=== PATIENT | female | born 1955 | race Caucasian/White ===

== ENCOUNTER → 2017-07-12 | Outpatient (CLI) | payer OTHER | LOC: M.RAD 14:37 | DX: Z12.31 Encounter for screening mammogram for malignant neoplasm of breast (principal); I10 Essential (primary) hypertension ==

== ENCOUNTER → 2019-12-25 | Outpatient (CLI) | payer MEDICARE, OTHER | END | disposition home or self-care (01) | LOC: M.RAD 12:48 | PROVIDERS: ATTEND Orthopaedic Surgery | DX: M25.551 Pain in right hip (principal) ==

== ENCOUNTER → 2020-02-03 | Outpatient (CLI) | payer MEDICARE, OTHER | LOC: M.MRI 16:24 | PROVIDERS: ATTEND Orthopaedic Surgery | DX: M51.15 Intervertebral disc disorders with radiculopathy, thoracolumbar region (principal); M47.817 Spondylosis without myelopathy or radiculopathy, lumbosacral region; M48.061 Spinal stenosis, lumbar region without neurogenic claudication ==

== ENCOUNTER → 2020-02-25 | Outpatient (CLI) | payer MEDICARE, OTHER ==
[~2020-02-25] MED LIST: APAP W/CODEINE1 TA2 PO; ASA81BEC PO; CARVEDILOL12.5 MG PO; COZAAR100 MG PO; CYMBALTA60 MG PO; TRIAMTERENE/HCT1 CA1 PO
[2020-02-25 10:56] LABS: ABSOLUTE BASOPHILS 0.1 thou/uL (0.0-0.2); ABSOLUTE EOSINOPHILS 0.1 thou/uL (0.0-0.7); ABSOLUTE LYMPHOCYTES 2.6 thou/uL (0.8-5.3); ABSOLUTE MONOCYTES 0.7 thou/uL (0.0-1.2); ABSOLUTE NEUTROPHILS 6.8 thou/uL (1.6-8.1); BASOPHILS 0.7 %; EOSINOPHILS 1.2 %; HEMATOCRIT 40.1 % (37.0-47.0); HEMOGLOBIN 13.6 gm/dL (12.0-15.0); LYMPHOCYTES 25.7 %; MCH 29.1 pg (26.0-34.0); MCHC 33.9 g/dL (28.0-37.0); MCV 85.8 fL (80.0-100.0); MONOCYTES 6.3 %; MPV 6.3 fl. (7.2-11.1); NUCLEATED RBCS 0 /100WBC; PLATELET COUNT* 319 thou/uL (150-400); POLYS 66.1 %; RBC 4.67 mil/uL (4.20-5.00); RDW-CV 13.5 % (10.5-14.5); WBC 10.3 thou/uL (4.0-11.0)
[2020-02-25 11:03] LABS: APTT 26.8 Seconds (25.0-31.3); PROTIME 10.8 Seconds (9.20-11.50)
[2020-02-25 11:04] LABS: ALBUMIN 3.6 g/dL (3.4-5.0); CALCIUM 9.1 mg/dL (8.5-10.1); CREATININE 0.8 mg/dL (0.6-1.3); POTASSIUM 3.9 mmol/L (3.5-5.1); TOTAL BILIRUBIN 0.5 mg/dL (<0.1-1.0); TOTAL PROTEIN 7.4 g/dL (6.4-8.2)
[2020-02-25 12:26] LABS: ESR (SEDRATE) 26 mm/hr (0-30)
--- NOTE | 2020-02-25 15:43 | EKG ---
[place] [address] ELECTROCARDIOGRAM REPORT Name: MADELYN MONTANEZ Room: [facility]#: [id number] Admission: 02/25/20 Attend Phys: Padilla Chanel DO Discharge: Date of : 55 Date of Service: 02/25/20 1109 Report #: [id number] THIS REPORT FOR: //name// [facility] Test Date: 2020-02-25 Test Time: 11:09:40 Pat Name: MADELYN MONTANEZ Department: Room: Gender: F Sql Report Analyst: : 1955 Requested By: Padilla Chanel Order Number: [id number] Reading MD: Shailesh Rivas Measurements Intervals [place] Rate: 73 P: 31 DE: 154 QRS: 3 QRSD: 86 T: 85 QT: 413 QTc: 456 Interpretive Statements Sinus rhythm Borderline T wave abnormalities Compared to ECG 05/06/2009 06:51:19 T-wave abnormality now present Electronically Signed On 02-25-2020 15:43:18 ADULT [employer]IST[employer]ES DIRECTOR by Shailesh Rivas [email or web address] <ELECTRONICALLY SIGNED> By: Paulino Rivas MD, [facility] 02/25/20 1543 1109 1109 Paulino Rivas MD, [facility] /EPI
[2020-02-26 02:06] LABS: GLYCOHEMOGLOBIN (HGB A1C) 5.8 % (4.8-5.6)
== END ==
LOC: M.LAB 10:33
PROVIDERS: ATTEND Orthopaedic Surgery
DX: Z01.812 Encounter for preprocedural laboratory examination (principal); Z20.828 Contact with and (suspected) exposure to other viral communicable diseases; M16.11 Unilateral primary osteoarthritis, right hip; I49.9 Cardiac arrhythmia, unspecified

== ENCOUNTER 2020-03-02 10:11 | Observation (INO) | payer MEDICARE, OTHER ==
[~2020-03-02] VITALS: Ht 154.9 cm; Wt 99.8 kg
[2020-03-02 11:50] VITALS: BP 144/74
--- NOTE | 2020-03-02 18:51 | NUR ---
PT ORIENTED TO ROOM. FALL RISK PRECAUTIONS IN PLACE. WILL CONTINUE TO MONITOR.
[2020-03-02 20:53] VITALS: BP 140/55
[2020-03-03 00:06] VITALS: BP 153/59
--- NOTE | 2020-03-03 05:02 | NUR ---
PATIENT SLEPT VERY WELL DURING NIGHT. SHE WOKE AT 0130 REQUESTED SOME PAIN MEDS, FLEXERIL AND OXYCODONE GIVEN. ICE PACKS KEPT ON HIP. ALERT AND ORIENTED AND 3L - NC. SCD'S ON CALVES AND XENIA HOSE IN PLACE. SHE RECEIVED ALL MEDS AND FLUIDS ORDERED.
[2020-03-03 05:10] LABS: HEMOGLOBIN 10.6 gm/dL (12.0-15.0)
[2020-03-03 07:45] VITALS: BP 136/53
[2020-03-03] MEDS ORDERED: ELIQUIS5 MG PO (10:30)
[2020-03-03] MEDS ORDERED: OXYCODONE HCL 55 MG PO (10:32)
--- NOTE | 2020-03-03 12:40 | NUR ---
Pt is A&O. Resides at home with her . Normally independent and active. Pt has a walker and cane at home, does not currently use either. Pt also has grab bars. Hx of home o2 approx 10 years ago. Hx of HH post knee replacement surgeries. No hx of SNF. Goal is home at dc, anticipate dc to home today. Per ortho, Pt is to do self directed exercises, Pt in agreement with that, Pt states that she has supportive kids that are available to assist if needed. LUIS ENRIQUEN called in Pt's Eliquis rx.
--- NOTE | 2020-03-03 12:51 | NUR ---
CALLED IN PRESCRIPTION FOR ELIQUIS, WRITTEN, TO [facility]TS [facility] CALLED BACK AT THIS TIME FOR COPAY. IT IS $21.93. PT.INFORMED.
[2020-03-03 12:52] VITALS: BP 136/53
[2020-03-03 16:00] VITALS: BP 110/37
[2020-03-03 16:28] VITALS: BP 136/53
--- NOTE | 2020-03-03 18:10 | NUR ---
DISCHARGED TO HOME ACCOMPANIED BY . TAKEN OUT VIA W/C BY NURSING. PT VERBALIZED UNDERSTANDING TO ALL DISCHARGED INSTRUCTIONS AND FOLLOW UP VISITS. SCRIPTS GIVEN TO PT FOR ELIQUIST, OXYCODONE, & TRAMADOL. IV DC'D WITH CATH CANNULA INTACT. PRESSURE APPLIED UNTIL BLEEDING CEASED AND COTTON BALL AND TAPE APPLIED. PT TOLERATED PYSICAL THERAPY AND UP AND DOWN STEPS THIS AFTERNOON.
[2020-03-03 18:13] VITALS: BP 136/53
--- NOTE | 2020-03-09 14:07 | OP ---
[address] [address] OPERATIVE REPORT Name: MADELYN MONTANEZ Room: [address] Edd Robin#: [id number] Admission: 03/02/20 Attend Phys: Balbina Mandujano Discharge: 03/03/20 Date of : 55 Report #: [id number] THIS REPORT FOR: //name// cc: Vane Holt MD, Tisha Darice MD ~ CC: Padilla Holt DICTATED BY: Tu Jara DO DATE OF SERVICE: 03/02/2020 PREOPERATIVE DIAGNOSIS: Right hip degenerative joint disease. POSTOPERATIVE DIAGNOSIS: Right hip degenerative joint disease. PROCEDURE: Right total hip arthroplasty. IMPLANTS: 1. Biomet total hip arthroplasty system with a G7 48 mm acetabular shell. 2. A size 4 micro Taperloc stem with standard offset, cementless. 3. A size 32 head with -3 neck adapter. 4. Two bone screws size 6.5 mm x 30 mm and 6.5 mm x 25 mm. SURGEON: Padilla Chanel DO ASSISTANTS: 1. Etta Bhatt PA-C; 2. Tu Jara DO ANESTHESIA: General. FLUIDS: Crystalloid per Anesthesia. ESTIMATED BLOOD LOSS: 345 mL. DRAINS: None. SPECIMENS: None. COMPLICATIONS: None. CONDITION: Stable to PACU. DISPOSITION: Recovery in PACU and transferred to the floor. [address] [place] [address] OPERATIVE REPORT Name: MADELYN MONTANEZ Room: [address] Edd Robin#: [id number] Admission: 03/02/20 Attend Phys: Balbina Mandujano Discharge: 03/03/20 Date of : 55 Report #: [id number] ANTIBIOTICS: 2 grams Ancef IV preop. INDICATIONS: The patient is a very pleasant 64-year-old female who presented to our clinic with right hip pain. She had radiographic evidence of degenerative joint disease. She failed conservative measures including activity modifications, attempted weight loss, intra-articular injections and oral medications. Her pain significantly affected her activities of daily living. We discussed the option of total hip arthroplasty. The risks, benefits, alternatives and possible complications were discussed at length and she wanted to proceed. DESCRIPTION OF PROCEDURE: The patient was met in the preoperative area. The correct site was marked. Consent was obtained both verbally and written. She was transferred to the operative suite. She was given benefit of general anesthesia. She was then transferred to the [place] table. She was secured to the table and feet were placed in the boots, which were then secured to the sparse. The right hip was then sterilely prepped and draped in the normal sterile fashion. A timeout was performed to identify the correct patient, procedure and operative site. All in the room were in agreement. It was confirmed that she had received IV antibiotics prior to the procedure. We began with a longitudinal incision approximately 1 cm distal and lateral to the ASIS. The incision was carried distally approximately 8 cm. Sharp dissection was carried down to the level of the fascia, which was then incised in line with the incision. We then bluntly dissected in the interval between the sartorius and TFL. We continued blunt dissection down between the rectus and the gluteus medius. At this point, we used the Aquamantys to coagulate the vessels, which were then ligated with Bovie cautery. We then continued exposure down to the level of the capsule. Retractors were placed. We then performed a capsulectomy exposing the femoral head and neck. A neck cut was made approximately 1 cm proximal to the lesser trochanter. A second osteotomy was performed to create a napkin ring osteotomy. The neck fragment was then removed with osteotome followed by removal of the femoral head. We then removed the soft tissue including the labrum and pulvinar. We then sequentially reamed under fluoroscopy guidance to a size 47 reamer in preparation for a final 48 size acetabular cup. After reaming, there was found to be good bleeding bone and appropriate depth of our reamings. We then placed the final components after we had wet and placed powdered vancomycin on the backside of the acetabular shell. This was malleted into place. We then placed two screws for acetabular fixation. We then placed the manhole cover. We then irrigated and placed the final poly with a high wall that was directed anteriorly and superiorly. We then turned our attention to the femoral preparation. The leg was externally rotated, extended and adducted. Soft tissue releases were performed to gain adequate access to the proximal femur. We started first with the box osteotome followed by a rat tail rasp. We then started broaching with a size 4 and was found to have a good fit. We placed a -3 trial neck with the appropriately sized trial head. This was reduced. X-rays were taken to identify and confirm [address] [address] OPERATIVE REPORT Name: MADELYN MONTANEZ Room: [address] EvelyneDebi#: [id number] Admission: 03/02/20 Attend Phys: Marito NazarioBalbina Min Discharge: 03/03/20 Date of : 55 Report #: [id number] appropriate fill of the femur with the stem, appropriate position of the acetabular cup, and appropriate leg lengths. After this was confirmed, we then dislocated the hip. Trial components were removed. We thoroughly irrigated the wound and proximal femur. The final size 4 stem was malleted into place and was found to seat well with good bite. We then placed the final head and reduced this into the acetabular component. Final pictures were taken and saved, which were confirmed to have appropriate position, femoral fill and leg lengths and offset. Vancomycin powder was then placed into the wound, which was a total of 1 gram. The tensor fascia was closed with #1 Stratafix suture. This was followed by 2-0 Monocryl suture to reapproximate the dermal tissue followed by a running 3-0 Stratafix subcuticularly with glue on the skin and a sterile Mepilex dressing. She was extubated and transferred to the PACU in stable condition. All needle and sponge counts were correct x 2 at the end of the case. Dr. Chanel was present and scrubbed throughout all critical aspects of the case. <ELECTRONICALLY SIGNED> By: Padilla Chanel DO 03/09/20 1407 1655 [id number] Chanel DO /nt
== END 2020-03-03 18:00 | disposition home or self-care (01) ==
LOC: M.PRE 10:11 → M.TBA 10:39 → M.3W 10:39 → M.TBA 10:39 → M.PRE 13:15 → M.3W 16:35 → M.TBA 16:35 → M.3W 18:47
PROVIDERS: Orthopaedic Surgery; ADMIT Internal Medicine; ATTEND Internal Medicine
DX: M16.11 Unilateral primary osteoarthritis, right hip (principal); M79.7 Fibromyalgia; I10 Essential (primary) hypertension; R53.82 Chronic fatigue, unspecified; M10.9 Gout, unspecified; E66.01 Morbid (severe) obesity due to excess calories; Z44.8 Encounter for fitting and adjustment of other external prosthetic devices; Z98.890 Other specified postprocedural states; Z90.49 Acquired absence of other specified parts of digestive tract; Z20.828 Contact with and (suspected) exposure to other viral communicable diseases